=== PATIENT | female | born 1960 | race Hispanic/Latino ===

== ENCOUNTER 2023-01-07 13:22 | Inpatient (IN) | payer MEDICARE ==
[~2023-01-07] VITALS: Ht 149.9 cm; Wt 78.5 kg
[2023-01-07 14:06] LABS: BASOPHILS % 0.2 % (0.0-1.0); EOSINOPHILS # (AUTO) 0.1 (0.0-0.4); EOSINOPHILS % 0.6 % (0.0-6.0); HEMATOCRIT 23.6 % (34.2-44.1); HEMOGLOBIN 7.7 g/dL (12.0-16.0); LYMPHOCYTES # (AUTO) 1.8 (1.0-3.2); LYMPHOCYTES % 8.2 % (18.0-39.1); MEAN CORPUSCULAR HEMOGLOBIN 29.2 pg (28-32); MEAN CORPUSCULAR HGB CONC 32.6 g/dL (31-35); MEAN CORPUSCULAR VOLUME 89.4 fL (81-99); MONOCYTES # (AUTO) 1.5 (0.2-0.8); MONOCYTES % 6.7 % (4.4-11.3); NEUTROPHILS # (AUTO) 18.4 (2.1-6.9); NEUTROPHILS % 83.8 % (38.7-80.0); PLATELET COUNT 324 x10e3/uL (140-360); RED BLOOD COUNT 2.64 x10e6/uL (3.6-5.1); RED CELL DISTRIBUTION WIDTH 14.1 % (11.7-14.4); WHITE BLOOD COUNT 21.94 x10e3/uL (4.8-10.8)
[2023-01-07] MEDS ORDERED: ONDANSETRON HCL INJ 2MG/ML 2ML 2 MG/ML VIAL IV STA (14:07)
[2023-01-07] MEDS ORDERED: Morphine 4mg INJECTION 4 MG/ML INJ IV STA (14:07)
[2023-01-07] MEDS ORDERED: LACTATED RINGER'S 1,000 ML IV ONE (14:15)
[2023-01-07 14:18] LABS: ALBUMIN 3.3 g/dL (3.5-5.0); ALBUMIN/GLOBULIN RATIO 0.8 (0.8-2.0); ANION GAP 15.1 mmol/L (8-16); CALCIUM 9.1 mg/dL (8.4-10.2); CREATININE, SERUM 2.82 mg/dL (0.57-1.11); POTASSIUM 5.1 mmol/L (3.5-5.1)
[2023-01-07 14:25] LABS: CLARITY,URINE TURBID (CLEAR); COLOR,URINE RED (YELLOW)
[2023-01-07 14:39] LABS: KETONES,URINE NEGATIVE (NEGATIVE); LEUKOCYTE ESTERASE ,URINE TRACE (NEGATIVE); NITRITE,URINE POSITIVE (NEGATIVE); PROTEIN,URINE DIPSTICK >=300 (NEGATIVE); URINE UROBILINOGEN 0.2 mg/dL (0.2 - 1)
[2023-01-07 14:40] LABS: BACTERIA,URINE MODERATE /HPF; RBC,URINE >50 /HPF (0-5)
[2023-01-07] MEDS ORDERED: ONDANSETRON HCL INJ 2MG/ML 2ML 2 MG/ML VIAL IV PRN (16:30)
[2023-01-07 16:57] LABS: INR 0.95; PROTHROMBIN TIME 13.2 seconds (11.9-14.5)
[2023-01-07] MEDS ORDERED: METRONIDAZOLE 500MG/NS 100ML 100 ML IV ONE (17:00)
[2023-01-07] MEDS ORDERED: Vancomycin IV 1 GM in SODIUM CHLORIDE 0.9% 250ML 250 ML IV ONE (18:00)
[2023-01-07] MEDS: Morphine 4mg INJECTION 4 MG/ML INJ IV PRN (18:15)
[2023-01-07 20:30] VITALS: BP 118/49; PULSE 63; RESP 20; TEMP 97.3; O2SAT 100
[2023-01-07 21:00] VITALS: BP 118/49; PULSE 63; RESP 20; TEMP 97.3; O2SAT 100
[2023-01-07 23:00] VITALS: BP 118/49; PULSE 63; RESP 20; TEMP 97.3; O2SAT 100
[2023-01-07] MEDS ORDERED: CRESTOR10 MG PO (23:55)
[2023-01-07] MEDS ORDERED: GEMTESA75 MG PO (23:55)
[2023-01-07] MEDS ORDERED: TRADJENTA5 MG PO (23:55)
[2023-01-07] MEDS ORDERED: HYDRALAZINE HC100 MG PO (23:55)
[2023-01-07] MEDS ORDERED: AMLODIPINE BESY10 MG PO (23:55)
[2023-01-07] MEDS ORDERED: GABAPENTIN300 MG PO (23:55)
[2023-01-07] MEDS ORDERED: PROPRANOLOL HCL40 MG PO (23:55)
[2023-01-07] MEDS ORDERED: LEVOTHYROXINE75 MCG PO (23:55)
[2023-01-08] VITALS (7 sets, daily range): BP systolic 110–142; BP diastolic 40–50; PULSE 71–89; RESP 17–20; TEMP 98.5–99; O2SAT 98–100
[2023-01-08] MEDS: Morphine 4mg INJECTION 4 MG/ML INJ IV PRN ×3 (01:15→18:06)
[2023-01-08 06:03] LABS: BASOPHILS % 0.2 % (0.0-1.0); EOSINOPHILS # (AUTO) 0.1 (0.0-0.4); EOSINOPHILS % 0.3 % (0.0-6.0); LYMPHOCYTES % 8.3 % (18.0-39.1); MEAN CORPUSCULAR HEMOGLOBIN 29.3 pg (28-32); MEAN CORPUSCULAR HGB CONC 32.1 g/dL (31-35); MEAN CORPUSCULAR VOLUME 91.2 fL (81-99); MONOCYTES # (AUTO) 1.3 (0.2-0.8); MONOCYTES % 5.1 % (4.4-11.3); NEUTROPHILS # (AUTO) 20.9 (2.1-6.9); NEUTROPHILS % 85.6 % (38.7-80.0); PLATELET COUNT 309 x10e3/uL (140-360); RED BLOOD COUNT 2.05 x10e6/uL (3.6-5.1); RED CELL DISTRIBUTION WIDTH 14.3 % (11.7-14.4); WHITE BLOOD COUNT 24.45 x10e3/uL (4.8-10.8)
[2023-01-08 06:23] LABS: HEMATOCRIT 18.7 % (34.2-44.1)
[2023-01-08 07:16] LABS: HEMATOCRIT 17.8 % (34.2-44.1); HEMOGLOBIN 5.7 g/dL (12.0-16.0)
[2023-01-08] MEDS ORDERED: ACETAMINOPHEN 325 MG TAB PO STA (08:54)
[2023-01-08] MEDS ORDERED: SODIUM CHLORIDE 0.9% 250ML 250 ML IV ONE (09:00)
[2023-01-08] MEDS ORDERED: DIPHENHYDRAMINE HCL INJ 50 MG/ML VIAL IV ONE (09:00)
[2023-01-08] MEDS ORDERED: DIPHENHYDRAMINE HCL INJ 50 MG/ML VIAL ONE (15:11)
[2023-01-08] MEDS: HYDROCODONE/APAP 7.5MG-325MG 1 EA TAB PO PRN (17:19)
[2023-01-08] MEDS: FUROSEMIDE INJ 10 MG/ML 2 ML VIAL IV PRN (18:05)
[2023-01-09] VITALS (8 sets, daily range): BP systolic 102–142; BP diastolic 40–49; PULSE 77–89; RESP 17–20; TEMP 98.3–100.2; O2SAT 92–100
[2023-01-09] MEDS ORDERED: DIPHENHYDRAMINE HCL INJ 50 MG/ML VIAL IV ONE (01:45)
[2023-01-09] MEDS: ACETAMINOPHEN 325 MG TAB PO PRN ×2 (02:01→21:06)
[2023-01-09 02:09] LABS: % IRON SATURATION 8 % (15-50); IRON 17 ug/dL (50-170); TOTAL IRON BINDING CAPACITY 216 ug/dL (261-478); TRANSFERRIN 154 mg/dL (180-382)
[2023-01-09 05:49] LABS: BASOPHILS # (AUTO) 0.1 (0.0-0.1); BASOPHILS % 0.3 % (0.0-1.0); EOSINOPHILS # (AUTO) 0.1 (0.0-0.4); EOSINOPHILS % 0.6 % (0.0-6.0); LYMPHOCYTES % 9.9 % (18.0-39.1); MEAN CORPUSCULAR HEMOGLOBIN 31.4 pg (28-32); MEAN CORPUSCULAR HGB CONC 34.8 g/dL (31-35); MEAN CORPUSCULAR VOLUME 90.1 fL (81-99); MONOCYTES # (AUTO) 1.3 (0.2-0.8); MONOCYTES % 6.6 % (4.4-11.3); NEUTROPHILS # (AUTO) 16.6 (2.1-6.9); NEUTROPHILS % 81.5 % (38.7-80.0); PLATELET COUNT 195 x10e3/uL (140-360); RED BLOOD COUNT 2.23 x10e6/uL (3.6-5.1); RED CELL DISTRIBUTION WIDTH 14.9 % (11.7-14.4); WHITE BLOOD COUNT 20.41 x10e3/uL (4.8-10.8)
[2023-01-09 06:05] LABS: ANION GAP 15.1 mmol/L (8-16); CALCIUM 8.3 mg/dL (8.4-10.2); CREATININE, SERUM 4.11 mg/dL (0.57-1.11); POTASSIUM 5.1 mmol/L (3.5-5.1)
[2023-01-09 06:13] LABS: HEMATOCRIT 20.1 % (34.2-44.1)
[2023-01-09] MEDS: FUROSEMIDE INJ 10 MG/ML 2 ML VIAL IV PRN (06:25)
[2023-01-09] MEDS ORDERED: PROPRANOLOL HCL 10 MG TAB PO SCH (09:00)
[2023-01-09 09:22] LABS: BAND NEUTROPHILS % (MANUAL) 1 %; LYMPHOCYTES % (MANUAL) 10 % (19-48); MONOCYTES % (MANUAL) 3 % (3.4-9.0); NEUTROPHILS % (MANUAL) 86 % (40-74)
[2023-01-09 09:23] LABS: PLATELET ESTIMATE ADEQUATE; PLATELET MORPHOLOGY COMMENT NORMAL; RBC MORPHOLOGY COMMENT NORMAL
[2023-01-09] MEDS: AMLODIPINE BESYLATE 10 MG TAB PO SCH (09:53)
[2023-01-09] MEDS: SODIUM CHLORIDE 0.9% 1000ML 1,000 ML IV SCH ×2 (09:53→17:45)
[2023-01-09] MEDS: GABAPENTIN 100 MG CAP PO SCH ×3 (09:53→21:07)
[2023-01-09] MEDS: LEVOTHYROXINE SODIUM 75 MCG TAB PO SCH (09:54)
[2023-01-09] MEDS: Morphine 4mg INJECTION 4 MG/ML INJ IV PRN (10:12)
[2023-01-09] MEDS ORDERED: SODIUM CHLORIDE 0.9% 250ML 250 ML ONE ×2 (11:33→13:32)
[2023-01-09] MEDS ORDERED: CEFTRIAXONE 1 GM VIAL ONE (11:33)
[2023-01-09] MEDS: IRON SUCROSE 100 MG in SODIUM CHLORIDE 0.9% 100 ML IV SCH (12:14)
[2023-01-09] MEDS ORDERED: FENTANYL CITRATE/PF 100MCG/2 ML INJ ONE (13:14)
[2023-01-09] MEDS ORDERED: MIDAZOLAM HCL 2 MG/2 ML VIAL ONE (13:14)
[2023-01-09] MEDS ORDERED: IOPAMIDOL 370 MG/ML 100 ML INFUS..BTL INJ ONE (13:32)
[2023-01-09] MEDS ORDERED: LIDOCAINE HCL 1% LOCAL INJ 20 ML VIAL ONE (13:32)
[2023-01-09] MEDS ORDERED: ONDANSETRON HCL 4 MG ORAL DISINTEGRATING TAB PO PRN (15:00)
[2023-01-09] MEDS: PROPRANOLOL HCL 10 MG TAB PO SCH (21:00)
[2023-01-09] MEDS ORDERED: CYANOCOBALAMIN INJ 1,000 MCG/ML VIAL IM ONE (23:00)
[2023-01-10] VITALS (8 sets, daily range): BP systolic 99–122; BP diastolic 40–59; PULSE 73–94; RESP 16–20; TEMP 98–99.9; O2SAT 95–99
[2023-01-10] MEDS: SODIUM CHLORIDE 0.9% 1000ML 1,000 ML IV SCH ×2 (03:26→17:41)
[2023-01-10] MEDS: LEVOTHYROXINE SODIUM 75 MCG TAB PO SCH (05:20)
[2023-01-10 06:20] LABS: BASOPHILS # (AUTO) 0.1 (0.0-0.1); BASOPHILS % 0.3 % (0.0-1.0); EOSINOPHILS # (AUTO) 0.2 (0.0-0.4); EOSINOPHILS % 0.9 % (0.0-6.0); HEMOGLOBIN 6.5 g/dL (12.0-16.0); LYMPHOCYTES # (AUTO) 1.7 (1.0-3.2); LYMPHOCYTES % 9.2 % (18.0-39.1); MEAN CORPUSCULAR HEMOGLOBIN 29.7 pg (28-32); MEAN CORPUSCULAR HGB CONC 33.9 g/dL (31-35); MEAN CORPUSCULAR VOLUME 87.7 fL (81-99); MONOCYTES # (AUTO) 1.3 (0.2-0.8); NEUTROPHILS # (AUTO) 15.5 (2.1-6.9); NEUTROPHILS % 81.6 % (38.7-80.0); PLATELET COUNT 226 x10e3/uL (140-360); RED BLOOD COUNT 2.19 x10e6/uL (3.6-5.1); RED CELL DISTRIBUTION WIDTH 15.7 % (11.7-14.4); WHITE BLOOD COUNT 18.96 x10e3/uL (4.8-10.8)
[2023-01-10 06:30] LABS: HEMATOCRIT 19.2 % (34.2-44.1)
[2023-01-10 07:06] LABS: ANION GAP 14.1 mmol/L (8-16); CALCIUM 8.1 mg/dL (8.4-10.2); CREATININE, SERUM 3.82 mg/dL (0.57-1.11); POTASSIUM 4.1 mmol/L (3.5-5.1)
[2023-01-10] MEDS: HYDROCODONE/APAP 7.5MG-325MG 1 EA TAB PO PRN ×3 (08:18→19:21)
[2023-01-10] MEDS: AMLODIPINE BESYLATE 10 MG TAB PO SCH (08:20)
[2023-01-10] MEDS: PROPRANOLOL HCL 10 MG TAB PO SCH ×2 (08:20→21:00)
[2023-01-10] MEDS: GABAPENTIN 100 MG CAP PO SCH ×3 (08:20→21:12)
[2023-01-10] MEDS: CYANOCOBALAMIN INJ 1,000 MCG/ML VIAL IM SCH (08:20)
[2023-01-10] MEDS: IRON SUCROSE 100 MG in SODIUM CHLORIDE 0.9% 100 ML IV SCH (08:30)
[2023-01-11 01:26] VITALS: BP 119/44; PULSE 81; RESP 18; TEMP 97.9; O2SAT 97
[2023-01-11] MEDS: SODIUM CHLORIDE 0.9% 1000ML 1,000 ML IV SCH ×3 (04:24→21:39)
[2023-01-11 05:35] VITALS: BP 106/43; PULSE 78; RESP 18; TEMP 98.6; O2SAT 95
[2023-01-11 05:57] LABS: BASOPHILS % 0.2 % (0.0-1.0); EOSINOPHILS # (AUTO) 0.2 (0.0-0.4); EOSINOPHILS % 1.4 % (0.0-6.0); LYMPHOCYTES # (AUTO) 1.6 (1.0-3.2); LYMPHOCYTES % 9.5 % (18.0-39.1); MEAN CORPUSCULAR HEMOGLOBIN 29.8 pg (28-32); MEAN CORPUSCULAR HGB CONC 32.8 g/dL (31-35); MEAN CORPUSCULAR VOLUME 90.9 fL (81-99); MONOCYTES # (AUTO) 1.4 (0.2-0.8); MONOCYTES % 8.4 % (4.4-11.3); NEUTROPHILS # (AUTO) 13.5 (2.1-6.9); NEUTROPHILS % 79.8 % (38.7-80.0); PLATELET COUNT 269 x10e3/uL (140-360); RED BLOOD COUNT 1.98 x10e6/uL (3.6-5.1); RED CELL DISTRIBUTION WIDTH 15.4 % (11.7-14.4); WHITE BLOOD COUNT 16.88 x10e3/uL (4.8-10.8)
[2023-01-11 06:12] LABS: HEMOGLOBIN 5.9 g/dL (12.0-16.0)
[2023-01-11] MEDS: LEVOTHYROXINE SODIUM 75 MCG TAB PO SCH (06:44)
[2023-01-11] MEDS ORDERED: FUROSEMIDE INJ 10 MG/ML 2 ML VIAL IV SCH (07:15)
[2023-01-11] MEDS ORDERED: SODIUM CHLORIDE 0.9% 250ML 250 ML IV ONE (07:15)
[2023-01-11] MEDS: HYDROCODONE/APAP 7.5MG-325MG 1 EA TAB PO PRN ×2 (07:46→15:47)
[2023-01-11] MEDS: GABAPENTIN 100 MG CAP PO SCH ×3 (07:47→21:42)
[2023-01-11] MEDS: CYANOCOBALAMIN INJ 1,000 MCG/ML VIAL IM SCH (07:47)
[2023-01-11 08:17] VITALS: BP 124/43; PULSE 83; RESP 19; TEMP 98.8; O2SAT 95
[2023-01-11] MEDS: PROPRANOLOL HCL 10 MG TAB PO SCH ×2 (09:00→21:00)
[2023-01-11 09:14] VITALS: BP 124/43; PULSE 83; RESP 19; TEMP 98.8; O2SAT 95
[2023-01-11] MEDS: AMLODIPINE BESYLATE 10 MG TAB PO SCH (09:18)
[2023-01-11] MEDS: FOLIC ACID/CYANOCOB/PYRIDOXINE TAB PO SCH (09:18)
[2023-01-11] MEDS: IRON SUCROSE 100 MG in SODIUM CHLORIDE 0.9% 100 ML IV SCH (10:00)
[2023-01-11] MEDS ORDERED: SODIUM CHLORIDE 0.9% 250ML 250 ML ONE ×2 (10:53→15:01)
[2023-01-11] MEDS: Morphine 4mg INJECTION 4 MG/ML INJ IV PRN (11:24)
[2023-01-11] MEDS: ACETAMINOPHEN 325 MG TAB PO PRN (17:37)
[2023-01-11 20:00] VITALS: BP 108/42; PULSE 67; RESP 17; TEMP 97.9; O2SAT 100
[2023-01-12 01:04] VITALS: BP 113/43; PULSE 70; RESP 17; TEMP 98; O2SAT 97
[2023-01-12] MEDS: HYDROCODONE/APAP 7.5MG-325MG 1 EA TAB PO PRN ×4 (01:24→23:21)
[2023-01-12 04:00] VITALS: BP 130/55; PULSE 69; RESP 17; TEMP 97.9; O2SAT 96
[2023-01-12] MEDS: LEVOTHYROXINE SODIUM 75 MCG TAB PO SCH (05:55)
[2023-01-12] MEDS: Morphine 4mg INJECTION 4 MG/ML INJ IV PRN ×2 (05:56→13:43)
[2023-01-12 07:45] LABS: HEMATOCRIT 27.5 % (34.2-44.1); HEMOGLOBIN 9.4 g/dL (12.0-16.0)
[2023-01-12] MEDS: GABAPENTIN 100 MG CAP PO SCH ×3 (08:29→22:05)
[2023-01-12] MEDS: FOLIC ACID/CYANOCOB/PYRIDOXINE TAB PO SCH (08:29)
[2023-01-12] MEDS: CYANOCOBALAMIN INJ 1,000 MCG/ML VIAL IM SCH (08:29)
[2023-01-12] MEDS: IRON SUCROSE 100 MG in SODIUM CHLORIDE 0.9% 100 ML IV SCH (08:29)
[2023-01-12] MEDS: AMLODIPINE BESYLATE 10 MG TAB PO SCH (08:30)
[2023-01-12] MEDS: PROPRANOLOL HCL 10 MG TAB PO SCH ×2 (08:31→21:00)
[2023-01-12] MEDS: SODIUM CHLORIDE 0.9% 1000ML 1,000 ML IV SCH ×2 (08:33→16:40)
[2023-01-12 09:14] VITALS: BP 140/50; PULSE 79; RESP 16; TEMP 97.9; O2SAT 100
[2023-01-12 12:37] VITALS: BP 115/47; PULSE 64; RESP 15; TEMP 98.4; O2SAT 97
[2023-01-12 16:47] VITALS: BP 146/74; PULSE 69; RESP 12; TEMP 98.1; O2SAT 100
[2023-01-12 20:00] VITALS: BP 128/46; PULSE 69; RESP 20; TEMP 98; O2SAT 100
[2023-01-13] VITALS (7 sets, daily range): BP systolic 120–145; BP diastolic 51–66; PULSE 61–80; RESP 18–20; TEMP 98–98.8; O2SAT 98–100
[2023-01-13] MEDS: SODIUM CHLORIDE 0.9% 1000ML 1,000 ML IV SCH ×2 (03:05→12:45)
[2023-01-13] MEDS: LEVOTHYROXINE SODIUM 75 MCG TAB PO SCH (06:26)
[2023-01-13] MEDS: HYDROCODONE/APAP 7.5MG-325MG 1 EA TAB PO PRN ×2 (07:12→20:19)
[2023-01-13] MEDS ORDERED: EPOETIN ALFA-EPBX 10,000 UNIT/ML VIAL SC ONE (09:45)
[2023-01-13] MEDS: CYANOCOBALAMIN INJ 1,000 MCG/ML VIAL IM SCH (09:50)
[2023-01-13] MEDS: AMLODIPINE BESYLATE 10 MG TAB PO SCH (09:51)
[2023-01-13] MEDS: GABAPENTIN 100 MG CAP PO SCH ×3 (09:52→20:18)
[2023-01-13] MEDS: PROPRANOLOL HCL 10 MG TAB PO SCH ×2 (09:52→20:18)
[2023-01-13] MEDS: FOLIC ACID/CYANOCOB/PYRIDOXINE TAB PO SCH (09:52)
[2023-01-13] MEDS: IRON SUCROSE 100 MG in SODIUM CHLORIDE 0.9% 100 ML IV SCH (10:59)
[2023-01-14] VITALS (8 sets, daily range): BP systolic 126–138; BP diastolic 48–63; PULSE 67–74; RESP 18–19; TEMP 98.3–99.1; O2SAT 100
[2023-01-14] MEDS: SODIUM CHLORIDE 0.9% 1000ML 1,000 ML IV SCH ×3 (00:35→21:09)
[2023-01-14] MEDS: LEVOTHYROXINE SODIUM 75 MCG TAB PO SCH (06:30)
[2023-01-14] MEDS: AMLODIPINE BESYLATE 10 MG TAB PO SCH (08:55)
[2023-01-14] MEDS: GABAPENTIN 100 MG CAP PO SCH ×3 (08:55→21:09)
[2023-01-14] MEDS: FOLIC ACID/CYANOCOB/PYRIDOXINE TAB PO SCH (08:55)
[2023-01-14] MEDS: PROPRANOLOL HCL 10 MG TAB PO SCH ×2 (08:56→21:00)
[2023-01-14] MEDS: CYANOCOBALAMIN INJ 1,000 MCG/ML VIAL IM SCH (08:56)
[2023-01-14] MEDS: HYDROCODONE/APAP 7.5MG-325MG 1 EA TAB PO PRN ×2 (09:00→23:26)
[2023-01-14] MEDS ORDERED: IRON SUCROSE 100 MG in SODIUM CHLORIDE 0.9% 100 ML IV ONE (09:00)
[2023-01-14 09:30] LABS: BASOPHILS # (AUTO) 0.1 (0.0-0.1); BASOPHILS % 0.4 % (0.0-1.0); EOSINOPHILS # (AUTO) 0.3 (0.0-0.4); EOSINOPHILS % 1.9 % (0.0-6.0); HEMATOCRIT 31.5 % (34.2-44.1); HEMOGLOBIN 10.8 g/dL (12.0-16.0); LYMPHOCYTES # (AUTO) 2.2 (1.0-3.2); LYMPHOCYTES % 16.2 % (18.0-39.1); MEAN CORPUSCULAR HEMOGLOBIN 30.3 pg (28-32); MEAN CORPUSCULAR HGB CONC 34.3 g/dL (31-35); MEAN CORPUSCULAR VOLUME 88.2 fL (81-99); MONOCYTES # (AUTO) 1.2 (0.2-0.8); MONOCYTES % 8.7 % (4.4-11.3); NEUTROPHILS # (AUTO) 9.6 (2.1-6.9); NEUTROPHILS % 71.4 % (38.7-80.0); PLATELET COUNT 334 x10e3/uL (140-360); RED BLOOD COUNT 3.57 x10e6/uL (3.6-5.1); RED CELL DISTRIBUTION WIDTH 14.6 % (11.7-14.4); WHITE BLOOD COUNT 13.41 x10e3/uL (4.8-10.8)
[2023-01-14] MEDS ORDERED: KETAMINE 50MG/5ML SYR ONE (11:45)
[2023-01-14] MEDS ORDERED: ACETAMINOPHEN 1000 MG/100 ML 100 ML IV ONE (11:45)
[2023-01-15] VITALS (8 sets, daily range): BP systolic 122–137; BP diastolic 43–52; PULSE 65–73; RESP 16–18; TEMP 97.9–98.7; O2SAT 98–100
[2023-01-15] MEDS: SODIUM CHLORIDE 0.9% 1000ML 1,000 ML IV SCH ×2 (05:32→16:19)
[2023-01-15] MEDS: LEVOTHYROXINE SODIUM 75 MCG TAB PO SCH (05:35)
[2023-01-15] MEDS: FOLIC ACID/CYANOCOB/PYRIDOXINE TAB PO SCH (09:18)
[2023-01-15] MEDS: PROPRANOLOL HCL 10 MG TAB PO SCH ×2 (09:19→20:36)
[2023-01-15] MEDS: GABAPENTIN 100 MG CAP PO SCH ×3 (09:19→20:36)
[2023-01-15] MEDS: CYANOCOBALAMIN INJ 1,000 MCG/ML VIAL IM SCH (09:20)
[2023-01-15] MEDS: AMLODIPINE BESYLATE 10 MG TAB PO SCH (09:20)
[2023-01-15] MEDS ORDERED: MAGNESIUM HYDROXIDE 30 ML UDC PO PRN (10:30)
[2023-01-15] MEDS: SENNA-S TABLET PO SCH ×2 (11:49→16:21)
[2023-01-15] MEDS: ACETAMINOPHEN 325 MG TAB PO PRN (21:08)
[2023-01-16] VITALS (7 sets, daily range): BP systolic 134–172; BP diastolic 53–66; PULSE 68–84; RESP 16–18; TEMP 98.1–99.1; O2SAT 97–100
[2023-01-16] MEDS: SODIUM CHLORIDE 0.9% 1000ML 1,000 ML IV SCH ×3 (01:48→22:05)
[2023-01-16] MEDS: LEVOTHYROXINE SODIUM 75 MCG TAB PO SCH (03:11)
[2023-01-16] MEDS ORDERED: BOTULINUM TOXIN TYPE A 100 UNIT VIAL IM ONE (08:00)
[2023-01-16] MEDS ORDERED: IOPAMIDOL 610MG/1ML 300 MG/ML VIAL IV ONE ×2 (08:25→09:20)
[2023-01-16] MEDS: GABAPENTIN 100 MG CAP PO SCH ×3 (09:00→22:03)
[2023-01-16] MEDS: FENTANYL CITRATE/PF 100MCG/2 ML INJ ONE ×3 (09:50→10:12)
[2023-01-16] MEDS ORDERED: PHENAZOPYRIDINE HCL 100 MG TAB ONE (10:02)
[2023-01-16] MEDS ORDERED: LIDOCAINE HCL 2% LOCAL INJ 5 ML SDV VIAL INJ ONE (12:06)
[2023-01-16] MEDS ORDERED: ONDANSETRON HCL INJ 2MG/ML 2ML 2 MG/ML VIAL ONE (12:06)
[2023-01-16] MEDS ORDERED: SEVOFLURANE INHAL SOLN 250 ML PEN BTL ONE (12:06)
[2023-01-16] MEDS ORDERED: PROPOFOL IV EMULSION 10 MG/ML 20 ML VIAL ONE (12:06)
[2023-01-16] MEDS ORDERED: DEXAMETHASONE SOD PHOS INJ 4 MG/ML SDV ONE (12:06)
[2023-01-16] MEDS ORDERED: MIDAZOLAM HCL 2 MG/2 ML VIAL ONE (12:13)
[2023-01-16] MEDS ORDERED: FENTANYL CITRATE/PF 100MCG/2 ML INJ ONE (12:13)
[2023-01-16 12:19] LABS: BASOPHILS # (AUTO) 0.1 (0.0-0.1); BASOPHILS % 0.3 % (0.0-1.0); EOSINOPHILS # (AUTO) 0.1 (0.0-0.4); EOSINOPHILS % 0.3 % (0.0-6.0); HEMATOCRIT 34.6 % (34.2-44.1); HEMOGLOBIN 11.8 g/dL (12.0-16.0); LYMPHOCYTES # (AUTO) 1.3 (1.0-3.2); LYMPHOCYTES % 6.9 % (18.0-39.1); MEAN CORPUSCULAR HEMOGLOBIN 30.3 pg (28-32); MEAN CORPUSCULAR HGB CONC 34.1 g/dL (31-35); MEAN CORPUSCULAR VOLUME 88.7 fL (81-99); MONOCYTES # (AUTO) 0.2 (0.2-0.8); MONOCYTES % 1.3 % (4.4-11.3); NEUTROPHILS # (AUTO) 17.4 (2.1-6.9); NEUTROPHILS % 90.4 % (38.7-80.0); PLATELET COUNT 436 x10e3/uL (140-360); RED CELL DISTRIBUTION WIDTH 15.1 % (11.7-14.4); WHITE BLOOD COUNT 19.17 x10e3/uL (4.8-10.8)
[2023-01-16] MEDS: CYANOCOBALAMIN INJ 1,000 MCG/ML VIAL IM SCH (12:20)
[2023-01-16] MEDS: SENNA-S TABLET PO SCH ×2 (12:20→17:00)
[2023-01-16] MEDS: FOLIC ACID/CYANOCOB/PYRIDOXINE TAB PO SCH (12:20)
[2023-01-16] MEDS: AMLODIPINE BESYLATE 10 MG TAB PO SCH (12:21)
[2023-01-16] MEDS: PROPRANOLOL HCL 10 MG TAB PO SCH ×2 (12:22→22:04)
[2023-01-16] MEDS: ACETAMINOPHEN 325 MG TAB PO PRN (17:34)
[2023-01-17 00:49] VITALS: BP 135/55; PULSE 66; RESP 16; TEMP 98.3; O2SAT 100
[2023-01-17 05:11] VITALS: BP 139/58; PULSE 66; RESP 16; TEMP 97.4; O2SAT 100
[2023-01-17 05:55] LABS: BASOPHILS % 0.1 % (0.0-1.0); HEMATOCRIT 29.9 % (34.2-44.1); HEMOGLOBIN 10.1 g/dL (12.0-16.0); LYMPHOCYTES # (AUTO) 1.7 (1.0-3.2); LYMPHOCYTES % 12.2 % (18.0-39.1); MEAN CORPUSCULAR HEMOGLOBIN 30.4 pg (28-32); MEAN CORPUSCULAR HGB CONC 33.8 g/dL (31-35); MEAN CORPUSCULAR VOLUME 90.1 fL (81-99); MONOCYTES # (AUTO) 0.6 (0.2-0.8); MONOCYTES % 4.4 % (4.4-11.3); NEUTROPHILS # (AUTO) 11.6 (2.1-6.9); NEUTROPHILS % 82.7 % (38.7-80.0); PLATELET COUNT 410 x10e3/uL (140-360); RED BLOOD COUNT 3.32 x10e6/uL (3.6-5.1); RED CELL DISTRIBUTION WIDTH 14.8 % (11.7-14.4)
[2023-01-17] MEDS: LEVOTHYROXINE SODIUM 75 MCG TAB PO SCH (06:52)
[2023-01-17] MEDS: SODIUM CHLORIDE 0.9% 1000ML 1,000 ML IV SCH ×2 (06:52→17:13)
[2023-01-17 06:56] LABS: ANION GAP 15.5 mmol/L (8-16); CALCIUM 8.6 mg/dL (8.4-10.2); CREATININE, SERUM 1.25 mg/dL (0.57-1.11); POTASSIUM 4.5 mmol/L (3.5-5.1)
[2023-01-17 08:02] VITALS: BP 136/47; PULSE 69; RESP 17; TEMP 98.6; O2SAT 100
[2023-01-17 08:26] VITALS: BP 136/47; PULSE 69; RESP 17; TEMP 98.6; O2SAT 100
[2023-01-17] MEDS: CYANOCOBALAMIN INJ 1,000 MCG/ML VIAL IM SCH (09:05)
[2023-01-17] MEDS: GABAPENTIN 100 MG CAP PO SCH ×3 (09:05→23:12)
[2023-01-17] MEDS: PROPRANOLOL HCL 10 MG TAB PO SCH ×2 (09:06→23:12)
[2023-01-17] MEDS: SENNA-S TABLET PO SCH ×2 (09:07→17:00)
[2023-01-17] MEDS: FOLIC ACID/CYANOCOB/PYRIDOXINE TAB PO SCH (09:07)
[2023-01-17] MEDS: AMLODIPINE BESYLATE 10 MG TAB PO SCH (09:07)
[2023-01-17] MEDS: ACETAMINOPHEN 325 MG TAB PO PRN ×3 (09:08→23:11)
[2023-01-17 13:39] VITALS: BP 128/44; PULSE 64; RESP 16; TEMP 98.6; O2SAT 100
[2023-01-17 20:00] VITALS: BP 144/64; PULSE 61; RESP 18; TEMP 97.9; O2SAT 100
[2023-01-18] VITALS: BP 140/51; PULSE 68; RESP 18; TEMP 97.7; O2SAT 98
[2023-01-18] MEDS: SODIUM CHLORIDE 0.9% 1000ML 1,000 ML IV SCH (02:45)
[2023-01-18 04:00] VITALS: BP 130/77; PULSE 72; RESP 18; TEMP 98.3; O2SAT 99
[2023-01-18] MEDS: ACETAMINOPHEN 325 MG TAB PO PRN ×2 (05:47→12:51)
[2023-01-18] MEDS: LEVOTHYROXINE SODIUM 75 MCG TAB PO SCH (05:48)
[2023-01-18 06:06] LABS: BASOPHILS % 0.2 % (0.0-1.0); EOSINOPHILS # (AUTO) 0.2 (0.0-0.4); HEMATOCRIT 30.8 % (34.2-44.1); HEMOGLOBIN 10.3 g/dL (12.0-16.0); LYMPHOCYTES # (AUTO) 2.5 (1.0-3.2); LYMPHOCYTES % 14.9 % (18.0-39.1); MEAN CORPUSCULAR HEMOGLOBIN 30.1 pg (28-32); MEAN CORPUSCULAR HGB CONC 33.4 g/dL (31-35); MEAN CORPUSCULAR VOLUME 90.1 fL (81-99); MONOCYTES # (AUTO) 1.2 (0.2-0.8); MONOCYTES % 7.4 % (4.4-11.3); NEUTROPHILS # (AUTO) 12.7 (2.1-6.9); PLATELET COUNT 431 x10e3/uL (140-360); RED BLOOD COUNT 3.42 x10e6/uL (3.6-5.1); RED CELL DISTRIBUTION WIDTH 14.9 % (11.7-14.4); WHITE BLOOD COUNT 16.65 x10e3/uL (4.8-10.8)
[2023-01-18 06:33] LABS: CALCIUM 8.4 mg/dL (8.4-10.2); CREATININE, SERUM 1.19 mg/dL (0.57-1.11)
[2023-01-18 08:06] VITALS: BP 121/43; PULSE 63; RESP 17; TEMP 98; O2SAT 100
[2023-01-18 08:14] VITALS: BP 121/43; PULSE 63; RESP 17; TEMP 98; O2SAT 100
[2023-01-18] MEDS ORDERED: MEROPENEM 500 MG VIAL ONE (08:31)
[2023-01-18] MEDS: CYANOCOBALAMIN INJ 1,000 MCG/ML VIAL IM SCH (09:04)
[2023-01-18] MEDS: AMLODIPINE BESYLATE 10 MG TAB PO SCH (09:05)
[2023-01-18] MEDS: PROPRANOLOL HCL 10 MG TAB PO SCH (09:05)
[2023-01-18] MEDS: SENNA-S TABLET PO SCH (09:06)
[2023-01-18] MEDS: FOLIC ACID/CYANOCOB/PYRIDOXINE TAB PO SCH (09:06)
[2023-01-18] MEDS: GABAPENTIN 100 MG CAP PO SCH (09:06)
[2023-01-18 11:42] VITALS: BP 147/65; PULSE 56; RESP 18; TEMP 98.2; O2SAT 100
== END 2023-01-18 13:59 | disposition home or self-care (01) | DRG 755 ==
LOC: ER 13:23 → ERHOLD 16:37 → MED/SURG3 20:49
PROVIDERS: ADMIT Internal Medicine; ATTEND Internal Medicine
PROC: 30233N1 Transfusion of Nonautologous Red Blood Cells into Peripheral Vein, Percutaneous Approach (ICD-10-PCS; principal; 2023-01-08)
PROC: 0T9030Z Drainage of Right Kidney with Drainage Device, Percutaneous Approach (ICD-10-PCS; 2023-01-09)
PROC: 0T29X0Z Change Drainage Device in Ureter, External Approach (ICD-10-PCS; 2023-01-09)
DX: C56.9 Malignant neoplasm of unspecified ovary (principal); C79.89 Secondary malignant neoplasm of other specified sites; N13.4 Hydroureter; N39.0 Urinary tract infection, site not specified; T83.511A Infection and inflammatory reaction due to indwelling urethral catheter, initial encounter; N17.9 Acute kidney failure, unspecified; N82.3 Fistula of vagina to large intestine; D63.0 Anemia in neoplastic disease; Z11.52 Encounter for screening for COVID-19; I12.9 Hypertensive chronic kidney disease with stage 1 through stage 4 chronic kidney disease, or unspecified chronic kidney disease; N18.9 Chronic kidney disease, unspecified; R00.0 Tachycardia, unspecified; E66.9 Obesity, unspecified; B96.89 Other specified bacterial agents as the cause of diseases classified elsewhere; B96.20 Unspecified Escherichia coli [E. coli] as the cause of diseases classified elsewhere; Z68.34 Body mass index [BMI] 34.0-34.9, adult; N93.9 Abnormal uterine and vaginal bleeding, unspecified; N99.528 Other complication of incontinent external stoma of urinary tract; E86.0 Dehydration; Z92.3 Personal history of irradiation; Z92.21 Personal history of antineoplastic chemotherapy; Z85.43 Personal history of malignant neoplasm of ovary
CPT/HCPCS: 36415; 50387; 50432; 74176; 74420; 74470; 76942; 80048; 80053; 81001; 82607; 82746; 82948; 83540; 84466; 85014; 85018; 85025; 85045; 85610; 86850; 86900; 86920; 87086; 87186; 88305; 99152; 99153; 99284; C1758; C1769; C2625; J0587; J0692; J0696; J1100; J1200; J1756; J1940; J2001; J2185; J2250; J2270; J2405; J2543; J3420; J7030; J7050; P9016; Q9967; U0002